=== PATIENT | male | born 1970 | race African-American/Black ===

== ENCOUNTER 2021-03-16 01:04 | Emergency (ER) | payer SELFPAY ==
[~2021-03-16] VITALS: Ht 182.9 cm; Wt 87.2 kg
--- NOTE | 2021-03-16 04:28 | ED.ADGEN ---
Past Medical History Past Medical History: Hypertension, Pancreatitis Past Surgical History: Other Additional Past Surgical Histo: LEFT KNEE Smoking Status: Current Every Day Smoker Alcohol Use: Heavy General Adult EDM: Chief Complaint: SHORTNESS OF BREATH HPI: HPI: Patient is a 50 year old male coming in via EMS for chest tightness after he smokes some marijuana, but thinks it might be laced with an upper because he has been jittery since. No cough fever or other complaints. Review of Systems: Review of Systems: All other systems within normal limits except for as noted in the HPI Allergies: Allergies: Allergies Coded Allergies Type Severity Reaction Last Updated Verified No Known Drug Allergies 03/16/21 No Physical Exam: PE: Constitutional: Well developed, well nourished, no acute distress, non-toxic appearance. [] HENT: Normocephalic, atraumatic, bilateral external ears normal, nose normal. [] Eyes: PERRLA, conjunctiva normal, no discharge. [] Neck: No rigidity, supple, no stridor. [] Cardiovascular: Regular rate and rhythm, brisk cap refill [] Lungs & Thorax: Non labored symmetric respirations, no tachypnea or respiratory distress [] Abdomen: Soft, nondistended. Skin: Warm, dry, no erythema, no rash. [] Back: Unremarkable Extremities: No deformities, range of motion grossly intact, no lower extremity edema [] Neurologic: Alert and oriented X 3, no focal deficits noted. [] Psychologic: Affect normal, judgement normal, mood normal. [] Current Patient Data: Vital Signs: Vital Signs Date Time Temp Pulse Resp B/P (MAP) Pulse Ox O2 Delivery O2 Flow Rate FiO2 03/16/21 01:45 97.7 85 16 164/80 (108) 99 Room Air 97.7 EKG: EKG: [] Heart Score: C/O Chest Pain: No Risk Factors: Risk Factors: DM, Current or recent (<one month) smoker, HTN, HLP, family history of CAD, obesity. Risk Scores: Score 0 - 3: 2.5% MACE over next 6 weeks - Discharge Home Score 4 - 6: 20.3% MACE over next 6 weeks - Admit for Clinical Observation Score 7 - 10: 72.7% MACE over next 6 weeks - Early Invasive Strategies Radiology/Procedures: Radiology/Procedures: Chest x-ray unremarkable, no infiltrates. EP interpretation [] Course & Med Decision Making: Course & Med Decision Making Pertinent Labs and Imaging studies reviewed. (See chart for details) [] Dragon Disclaimer: Melanie Disclaimer: This electronic medical record was generated, in whole or in part, using a voice recognition dictation system. Departure Departure Impression: Primary Impression: Substance abuse Disposition: HOME / SELF CARE / HOMELESS Condition: STABLE Patient Instructions: Substance Abuse-Brief RADAMES LOVELACE MD Mar 16, 2021 04:28
[2021-03-16 04:30] VITALS: BP 152/78
--- NOTE | 2021-03-16 05:49 | RAD ---
XR CHEST 1V INDICATION: Reason: possible lung injury from smoking drugs / Spl. Instructions: / History: . COMPARISON STUDY: None. FINDINGS: Lungs: Normal lung volume. No pulmonary mass or consolidation. The tracheobronchial tree and hilar st ructures are normal. Pleura: No pleural effusion or pneumothorax. Heart and Mediastinum: The cardiomediastinal silhouette is normal. The great vessels of the thorax ar e normal. IMPRESSION: No acute cardiopulmonary process. Electronically signed by: Reji Perdomo MD (03/16/2021 5:47 AM) [facility]
== END 2021-03-16 05:00 | disposition home or self-care (01) ==
LOC: ER 01:04
DX: F12.10 Cannabis abuse, uncomplicated (principal); R07.89 Other chest pain; I10 Essential (primary) hypertension; F17.200 Nicotine dependence, unspecified, uncomplicated; F10.20 Alcohol dependence, uncomplicated; Y90.9 Presence of alcohol in blood, level not specified
CPT/HCPCS: 71045; 99285-25